=== PATIENT | male | born 1980 | race Asian ===

== ENCOUNTER 2025-05-24 11:49 | Day surgery (SDC) | payer OTHER, SELFPAY ==
[2025-05-17 10:41] VITALS: BMI 26.0
[2025-05-24] VITALS (8 sets, daily range): BP systolic 93–118; BP diastolic 50–82; PULSE 73–89; RESP 13–22; TEMP 36.2–36.9; O2SAT 95–100
--- NOTE | 2025-05-24 13:08 | P.OP.PRE_ITS ---
Pre-operative Note COVID-19 COVID-19 status: Not tested Interval Note History & Physical reviewed/Exam performed by Physician: Yes Changes to H&P: Yes H&P completed within 30 days and has changed as indicated here:: The outside [employer] report mentioned possible abnormalities in the extrahepatic bile ducts so I recommended we add an intraoperative cholangiogram. He would like to proceed. ASA Class (for procedural sedation): I
[2025-05-24] MEDS: INDOCYANINE GREEN 25 MG VIAL IV (13:10)
[2025-05-24] MEDS: LACTATED RINGERS 1,000 ML 84 ML IV (13:11)
--- NOTE | 2025-05-24 14:07 | SUR.OPER ---
Supine on padded OR bed, head on pillow, safety belt at thigh, bilateral arms padded and tucked at sides. Legs uncrossed. Padded footboard in place. Tape over blanket to secure lower legs.
--- NOTE | 2025-05-24 17:03 | P.OP_ITS ---
Operative Date/Time/Diagnoses Date of procedure: 05/24/25 Time of procedure: 17:03 Pre-op diagnosis: Symptomatic cholelithiasis Post-op diagnosis: other (Irregular, nodular, contracted gallbladder concerning for cancer) Procedure & Clinicians Procedure: Robotic cholecystectomy (aborted) Same procedure(s) as scheduled: Yes Surgeon: Hector Mazariegos Assisted?: No Anesthesia Type: General Operative Notes Findings: Firm, irregular and contracted gallbladder Applied: none Estimated Blood Loss (mL): 5 Procedure in detail: The patient was given preoperative antibiotics. The patient was brought to the operating room, placed on the table in the supine position. General endotracheal anesthesia was induced. Both arms were tucked. The abdomen was pr epped and draped. A time-out was performed. A cut down was performed at the infraumbilical fold. The umbilical stalk was grasped with a Kai clamp to elevate the abdominal wall. The fascia was scored with cautery and the peritoneum was pierced with a Peon clamp. The 12 mm port was placed and the abdomen was insufflated to 15 mmHg. The endoscope was inserted. There was no evidence of any injury from the entry. Next, two 8 mm ports were placed in the left abdomen and one in the right abdomen under direct vision. The patient was then positioned in 15? of reverse Trendelenburg and the table was tilted slightly to the left. The robot was brought in from the patient's left side and docked. A fenestrated bipolar was placed through arm 1, the hook cautery through arm 3 and the ProGras p through arm 4. The gallbladder was markedly abnormal in appearance. There was a tongue of omentum adhered to the midportion of the gallbladder. No plane could be identified between the omentum in the gallbladder so the tongue of omentum was amputated about 2 cm away from its attachment to the gallbladder serosa. The infundibulum of the gallbladder also appeared to be quite contracted and irr egular. The cystic duct was obscured by a dense mass of fibrotic tissue and even with firefly the cystic duct could not be distinguished. The common hepatic duct appear to be visible medial to and above the infundibulum but again no safe tissue plane could be dissected. At this point the concern for malignancy was raised. I called Dr. Núñez the hepatobiliary surgeon at [facility] for his opinion. Together we decided the best option would be to abort the current procedure, obtain a CT scan and additional blood work and potentially or come up for gallbladder carcinoma. A small amount of blood was suctioned out of the right upper quadrant. The 8 mm ports were then removed under direct vision. Finally the 12 mm port was removed. Additional local was injected into the fascia of the 12 mm port site which was then closed with interrupted 0 Vicryl suture. The skin incisions were closed with 4 Monocryl and Steri-Strips were applied. Band-Aids were applied over the Steri-Strips. The patient was awakened and brought to recovery room. Specimen: None Complications: none Post-operative Condition: stable Disposition: PACU
--- NOTE | 2025-05-24 17:08 | SUR.PHASEII ---
Dr Mazariegos spoke with patient in phase 2 recovery, explained findings from surgery & next steps to include labs and CT; asked Dr Mazariegos if he would like labs drawn now, he stated yes so labs to be drawn prior to d/c (CA 19-9, CMP, CBC). Pt appeared to understand most of updated plan of care, did state he felt a bit groggy so Dr Mazariegos will follow up in a day or two.
[2025-05-24 17:29] LABS: Add Manual Diff / Slide Review NO; Hematocrit 44.0 % (41-53); Hemoglobin 14.7 g/dL (13.5-17.5); Lymphocytes Absolute Auto 1000 /uL (1100-4500); Mean Corpuscular HGB Conc 33.4 % (30-36); Mean Corpuscular Hemoglobin 28.1 PG (26-34); Mean Corpuscular Volume 84.0 fL (80-100); Platelet Count 221 X10^3/uL (150-400)
[2025-05-24 17:43] LABS: Alanine Aminotransferase 71 IU/L (<50); Albumin 4.8 g/dL (3.5-5.0); Albumin Globulin Ratio 1.4 (1.0-2.8); Alkaline Phosphatase 91 U/L (38-126); Blood Urea Nitrogen 13 mg/dL (9-20); Calcium 9.5 mg/dL (8.4-10.2); Carbon Dioxide 25 mmol/L (22-32); Chloride 104 mmol/L (98-107); Estimated Glomerular Filt Rate > 60 mL/min (>60); Globulin 3.5 g/dL (1.7-4.1); Glucose 116 mg/dL (70-99); HEMOLYSIS < 15 (0-50); Potassium 4.7 mmol/L (3.4-5.1); Sodium 138 mmol/L (137-145); Total Protein 8.3 g/dL (6.3-8.2)
[2025-05-26 06:38] LABS: Cancer (Carbohydrate) Ag 19-9 10555 U/mL (0-35)
== END 2025-05-24 17:38 | disposition home or self-care (01) ==
PROVIDERS: PCP Family Medicine; Referring Provider Family Medicine; Visit Provider Surgery
PROC: 0FT44ZZ Resection of Gallbladder, Percutaneous Endoscopic Approach (ICD-10-PCS; CPT 47562; principal; 2025-05-24 13:45)
DX: K80.20 Calculus of gallbladder without cholecystitis without obstruction (principal); Z53.09 Procedure and treatment not carried out because of other contraindication; K82.8 Other specified diseases of gallbladder
CPT/HCPCS: 47562; 80053; 85025; 86301; S2900; J0689; J1100; J1885; J2405; J2704; J3010; J3490; J7120; Q9967

== ENCOUNTER → 2025-05-28 11:29 | Outpatient (CLI) | payer OTHER, SELFPAY ==
--- NOTE | 2025-05-28 11:30 | DI.CT.S_ITS ---
PROCEDURE: CT ABDOMEN PELVIS W CON INDICATIONS: Abnormal gallbladder TECHNIQUE: After the administration of intravenous contrast, axial sections acquired from the lung bases to the pubic symphysis. Coronal and sagittal reformats were performed. For radiation dose reduction, the following was used: automated exposure control, adjustment of mA and/or kV according to patient size. COMPARISON: [facility], US, US ABDOMEN COMPLETE, 04/26/2025, 7:01. Outside Facility, MR, MR ABDOMEN WO/W CON, 05/09/2025, 13:27. FINDINGS: Image quality: Diagnostic. Lower Chest: No significant findings. ABDOMEN: Liver: No solid mass. Steatosis. Liver measures 17.7 cm. Gallbladder: Gallbladder is abnormal in appearance. There is poor delineation of the wall and lumen. Areas of heterogeneous thickening are present. Areas of abnormality are in direct approximation to the duodenal C-loop as well as pancreatic head. Biliary ducts: The extrahepatic ducts are irregular and atretic within portions particularly at the confluence of the common hepatic and cystic ducts. There is mild appearance of intrahepatic biliary dilation appearing slightly more prominent when compared to prior exam. Pancreas: No ductal dilation. Spleen: Size is within normal limits. Adrenal Glands: No adrenal nodules. Kidneys and Ureters: No hydronephrosis. No solid mass. No complex renal cystic lesion which requires follow up. Stomach and Bowel: Normal colonic caliber, without significant wall thickening. Prominent colonic stool without obstruction. Peritoneum: No abnormal intraperitoneal fluid. No free air. Ventral Wall: No significant ventral hernia. Abdominal Nodes: Ill-defined areas of soft tissue or density are present in the perihepatic and aortic caval regions. Vessels: Aorta and inferior vena cava are normal in size. PELVIS: Pelvic Organs: Unremarkable. Bladder: No bladder wall thickening, accounting for underdistention. Pelvic Nodes: No enlarged lymph nodes. Miscellaneous: No inguinal hernias are seen. Bones: No aggressive osseous abnormality. IMPRESSION: Unchanged appearance of the gallbladder. It is heterogeneous with poor delineation of lumen versus wall. In addition, there is marked atresia at the confluence of the extrahepatic bile ducts as well as dilation of the intrahepatic ducts. While this overall could represent sequela of chronic inflammatory change and/or presence of stones, overall appearance raises suspicion of potential malignancy within the gallbladder and or ductal system, particularly noting abnormal soft tissue density such as retroperitoneal lymph nodes.. ERCP and further evaluation with GI is recommended. Dictated by: Lori Ga M.D. on 05/28/2025 at 15:45 Approved by: Lori Ga M.D. on 05/28/2025 at 15:50
== END ==
LOC: CT 11:30
PROVIDERS: PCP Family Medicine; Referring Provider Family Medicine; Visit Provider Surgery
DX: K80.20 Calculus of gallbladder without cholecystitis without obstruction (principal); K76.0 Fatty (change of) liver, not elsewhere classified; K82.9 Disease of gallbladder, unspecified; K83.8 Other specified diseases of biliary tract
CPT/HCPCS: 74177; Q9967